=== PATIENT | female | born 1965 | race Caucasian/White ===

== ENCOUNTER 2021-01-01 03:06 | Inpatient (IN) | payer MEDICARE, OTHER ==
[~2021-01-01] VITALS: Ht 175.3 cm; Wt 83.9 kg
[2021-01-01 07:49] VITALS: BP 156/99
[2021-01-01] MEDS ORDERED: CYAN-51 PO (07:49)
[2021-01-01] MEDS ORDERED: GUAN1TAB PO (07:49)
[2021-01-01] MEDS ORDERED: METF-440 PO (07:49)
[2021-01-01] MEDS ORDERED: GABA-532 PO (07:49)
[2021-01-01] MEDS ORDERED: GABA600T12 PO (07:49)
[2021-01-01] MEDS ORDERED: ACETAMINOPHEN 325 MG TABLET PO PRN (08:00)
[2021-01-01] MEDS ORDERED: BLOOD SUGAR DIAGNOSTIC 1 EACH STRIP IN ONE (08:00)
[2021-01-01] MEDS ORDERED: MAGNESIUM HYDROXIDE 30 ML UDC PO PRN (08:00)
[2021-01-01] MEDS ORDERED: MAG HYDROX/AL HYDROX/SIMETH 30 ML UDC PO PRN (08:00)
--- NOTE | 2021-01-01 08:00 | NUR ---
ADMITTED A 55 Y/O FEMALE FROM [facility] , ON 5150 HOLD FOR GD, PER 5150 HOLD, PATIENT IS TANGENTIAL REPORTED HER FATHER PASSING 6 MONTHS AGO BY SUICIDE AND STARTED CRYING ,CLIENT'S BOYFRIEND SHARED THAT CLIENT HASN'T BEEN SLEEPING FOR A COUPLE OF WEEKS AND ALSO NOT EATING ,POOR INSIGHT ,POOR JUDGMENT . PATIENT ADMITTING DX. PSYCHOSIS NOS MEDICAL HX OF ALCOHOLISM ,EATING DISORDER, ASTHMA, GESTATIONAL DM ,HTN MOOD DISORDER ,MOOD DISORDER , PTSD ,ST[place]HOLM SYNDROME. UPON FACE TO FACE EVALUATION, PATIENT APPEARED ALERT AND ORIENTED X 2 ,POOR INSIGHT ,POOR JUDGMENT ,DISORGANIZED THOUGHTS ,FLAT AFFECT ,TEARFUL ,MOOD DEPRESSED , PATIENT STATED "MY FATHER 6 MONTHS A GO AND I MISS HIM". HEAD TO TOE ASSESSMENT DONE NOTED DISCOLORATION ON RIGHT BUTTOCK ,RIGHT LOWER LEG ,LEFT LOWER THIGH AND LEFT BREAST . PATIENT AMBULATORY AND SELF CARE , NO SOB, NO ACUTE DISTRESS, BREATHING EVEN AND UNLABORED, NO S/S OF PAIN AND DISCOMFORT. PATIENT IS UNDER THE CARE OF DR. REED AND SAMANTHA MAGAÑA . BELONGINGS COLLECTED FOR CONTRABAND CHECK. NOTIFIED DR. REED AND SAMANTHA MAGAÑA TO RECONCILE MEDICATION. NOTIFIED RESPONSIBLE CONSTITUTION PARTY OF THE ADMISSION. KEPT CLEAN, DRY AND COMFORTABLE. WILL CONTINUE TO MONITOR Q15 MINUTES FOR SAFETY.
[2021-01-01] MEDS ORDERED: LISI30TA4 PO (10:09)
[2021-01-01] MEDS: LORAZEPAM 0.5 MG TABLET PO PRN (10:26)
--- NOTE | 2021-01-01 10:26 | NUR ---
patient c/o anxiety medicated with Ativan will continue to monitor .
[2021-01-01] MEDS: THIAMINE HCL 100 MG TABLET PO SCH (12:30)
[2021-01-01] MEDS: GABAPENTIN 100 MG CAPSULE PO SCH ×2 (13:37→17:00)
[2021-01-01 16:12] VITALS: BP 122/78
[2021-01-01 20:00] VITALS: BP 153/80
[2021-01-01 20:40] VITALS: BP 153/80
[2021-01-01] MEDS: ZOLPIDEM TARTRATE 5 MG TABLET PO PRN (21:23)
--- NOTE | 2021-01-01 21:23 | NUR ---
GPS-RN NOTE: INSOMNIA PATIENT C/O INABILITY TO SLEEP. PRN AMBIEN 5MG PO GIVEN. WILL CONTINUE TO MONITOR.
--- NOTE | 2021-01-02 01:05 | NUR ---
GPS-RN NOTE: PATIENT C/O LEFT SIDED JAW PAIN. PRN ACETAMINOPHEN 650MG PO GIVEN PER PATIENT'S REQUEST. WILL CONTINUE TO REASSESS.
[2021-01-02 06:39] LABS: BILIRUBIN,TOTAL 0.6 mg/dL (0.2-1.0); CALCIUM, SERUM 8.5 mg/dL (8.5-10.1); CREATININE 0.7 mg/dL (0.6-1.3); TOTAL PROTEIN, SERUM 6.8 g/dL (6.4-8.2)
[2021-01-02 06:51] LABS: CHOLESTEROL 259 mg/dL (<200); HDL CHOLESTEROL 41 mg/dL (40-60); LDL 166 mg/dL (0-99); TRIGLYCERIDES 321 mg/dL (30-150)
[2021-01-02] MEDS: LORAZEPAM 0.5 MG TABLET PO PRN ×2 (06:58→20:33)
--- NOTE | 2021-01-02 06:58 | NUR ---
GPS-RN NOTE: ANXIETY PATIENT C/O FEELING ANXIOUS. PRN ATIVAN 1MG PO GIVEN PER PATIENT'S REQUEST. WILL CONTINUE TO MONITOR.
[2021-01-02 08:00] VITALS: BP 165/100
--- NOTE | 2021-01-02 08:00 | NUR ---
RN NOTE- BP- 165/100. NO ANTIHYPERTENSIVES ORDERED,. POLICY OFFICER LALITO INFORMED. ORDERED LISINOPRIL 30 MG PO QD. COMPLIED / GIVEN
[2021-01-02] MEDS: BLOOD SUGAR DIAGNOSTIC 1 EACH STRIP IN SCH ×4 (08:25→22:03)
[2021-01-02] MEDS: CYANOCOBALAMIN 500 MCG TABLET PO SCH (08:29)
[2021-01-02] MEDS: ARIPIPRAZOLE 5 MG TABLET PO SCH (08:29)
[2021-01-02] MEDS: PAROXETINE HCL 10 MG TABLET PO SCH (08:29)
[2021-01-02] MEDS: MULTIPLE VIT (LYCOPENE/FA/MV,CA,IRON,MIN/LUT)1 TAB PO SCH (08:29)
[2021-01-02] MEDS: THIAMINE HCL 100 MG TABLET PO SCH (08:29)
[2021-01-02] MEDS: METFORMIN 500 MG TABLET PO SCH ×2 (08:29→16:08)
[2021-01-02] MEDS: GABAPENTIN 100 MG CAPSULE PO SCH ×3 (08:29→16:08)
[2021-01-02] MEDS ORDERED: DEXTROSE 50%-WATER 50 ML DISP.SYRIN IV PRN (08:30)
[2021-01-02] MEDS: LISINOPRIL (20MG) 20 MG TABLET PO SCH (08:30)
[2021-01-02] MEDS: INSULIN REGULAR, HUMAN 100 UNIT/ML 3 ML VIAL SQ PRN ×2 (10:04→16:39)
--- NOTE | 2021-01-02 10:41 | NUR ---
RN NOTE- VS RECHECK - BP- 159/104, HR-110. CHEMICAL LABORATORY SCIENTIST LALITO NOTIFIED. WILL ASSESS
--- NOTE | 2021-01-02 11:35 | NUR ---
RN NOTE- INCREASING ANXIETY. ATIVAN 1 MG PRN NOT DUE FOR ANOTHER [address] REED ON UNIT. ORDERED ATIVAN 2 MG PO X ONE DOSE STAT. COMPLIED. GIVEN.
[2021-01-02] MEDS ORDERED: LORAZEPAM 1 MG TABLET PO STA (11:37)
[2021-01-02] MEDS: ASPIRIN 81 MG TAB.CHEW PO SCH (12:12)
[2021-01-02] MEDS: AMLODIPINE BESYLATE 5 MG TABLET PO SCH (12:16)
--- NOTE | 2021-01-02 14:00 | NUR ---
RN NOTE- NAVI STARKEY ASSESSED PT ON UNIT AND ADDED NORVASC TO MEDICATION REGIMEN. REASSESSED PT VS AFTER NORVASC GIVEN EARLIER. CURRENT BP - 147/115, HR- 115. NAVI STARKEY NOTIFIED
[2021-01-02 16:00] VITALS: BP 139/95
--- NOTE | 2021-01-02 16:00 | NUR ---
RN NOTE- BP- 139/95, HR- 100
--- NOTE | 2021-01-02 20:35 | NUR ---
GPS RN NOTES: PATIENT WAS ANXIOUS, RESTLESS, ASKED NURSE FOR ANXIETY MEDICATION. ATIVAN 0.5MG, 4TABS/2MG GIVEN PO PRN ORDERED AT 2032. WILL CONTINUE TO MONITOR.
--- NOTE | 2021-01-02 20:37 | NUR ---
GPS RN NOTES: PATIENT IS ANXIOUS, RESTLESS, REQUESTED ATIVAN. ATIVAN 0.5MG, 4TABS/2MG GIVEN PO PRN ORDERED AT 2032. WILL CONTINUE TO MONITOR.
[2021-01-02] MEDS: ZOLPIDEM TARTRATE 5 MG TABLET PO PRN (21:34)
--- NOTE | 2021-01-02 21:35 | NUR ---
GPS RN NOTES: PATIENT REQUESTED FOR SLEEP MEDICATION. AMBIEN 5MG/1TAB GIVEN PO PRN ORDERED AT 2133. WILL CONTINUE TO MONITOR.
[2021-01-02] MEDS ORDERED: ATORVASTATIN 10 MG TABLET PO SCH (22:00)
[2021-01-03] MEDS: LORAZEPAM 0.5 MG TABLET PO PRN (04:20)
--- NOTE | 2021-01-03 04:20 | NUR ---
GPS RN NOTES: PATIENT WOKE UP AT 0417 AND REPORTED ANXIETY AND RESTLESSNESS, AND REQUESTED FOR ATIVAN. ATIVAN 0.5MG, 4TABS/2MG GIVEN PO PRN ORDERED AT 0420. WILL CONTINUE TO MONITOR.
[2021-01-03 06:29] LABS: BASOPHILS % (AUTO) 0.6 % (0.0-2.0); EOSINOPHILS % (AUTO) 2.9 % (0.0-6.0); HEMATOCRIT 33 % (33-45); LYMPHOCYTES # (AUTO) 1.4 /CMM (0.8-4.8); LYMPHOCYTES % (AUTO) 20.1 % (20.0-44.0); MEAN CORPUSCULAR HGB CONC 34 g/dl (31.0-36.0); MEAN CORPUSCULAR VOLUME 103 fL (82-100); MONOCYTES # (AUTO) 0.8 /CMM (0.1-1.30); NEUTROPHILS # (AUTO) 4.4 /CMM (1.8-8.9); NEUTROPHILS % (AUTO) 64.4 % (43.0-81.0); PLATELET COUNT (AUTO) 220 /CMM (150-450); RED BLOOD CELL COUNT(AUTO) 3.18 MIL/uL (4.0-5.2); WHITE BLOOD COUNT (AUTO) 6.8 K/uL (4.3-11.0)
[2021-01-03 06:45] LABS: CALCIUM, SERUM 8.4 mg/dL (8.5-10.1); CREATININE 0.6 mg/dL (0.6-1.3); MAGNESIUM 1.6 mg/dL (1.8-2.4); PHOSPHORUS 3.7 mg/dL (2.5-4.9); POTASSIUM 3.7 mmol/L (3.5-5.1)
[2021-01-03] MEDS: BLOOD SUGAR DIAGNOSTIC 1 EACH STRIP IN SCH (07:19)
[2021-01-03] MEDS: INSULIN REGULAR, HUMAN 100 UNIT/ML 3 ML VIAL SQ PRN (07:37)
[2021-01-03 08:00] VITALS: BP 150/94
[2021-01-03] MEDS: PAROXETINE HCL 10 MG TABLET PO SCH (08:46)
[2021-01-03] MEDS: THIAMINE HCL 100 MG TABLET PO SCH (08:46)
[2021-01-03] MEDS: ASPIRIN 81 MG TAB.CHEW PO SCH (08:46)
[2021-01-03] MEDS: CYANOCOBALAMIN 500 MCG TABLET PO SCH (08:46)
[2021-01-03] MEDS: GABAPENTIN 100 MG CAPSULE PO SCH (08:46)
[2021-01-03] MEDS: METFORMIN 500 MG TABLET PO SCH (08:46)
[2021-01-03] MEDS: ARIPIPRAZOLE 5 MG TABLET PO SCH (08:46)
[2021-01-03] MEDS: MULTIPLE VIT (LYCOPENE/FA/MV,CA,IRON,MIN/LUT)1 TAB PO SCH (08:46)
[2021-01-03] MEDS: LISINOPRIL (20MG) 20 MG TABLET PO SCH (08:47)
[2021-01-03 08:50] VITALS: BP 150/94
[2021-01-03] MEDS: AMLODIPINE BESYLATE 5 MG TABLET PO SCH (08:50)
--- NOTE | 2021-01-03 09:00 | NUR ---
RN NOTE- PT STATES "IM LEAVING AMA ONCE MD COMES IN" ALERT ORIENTED TO PERSON PLACE TIME PURPOSE DENIES SI HI [facility] CALM
--- NOTE | 2021-01-03 10:20 | NUR ---
Discharge Note: Pt will be discharged against medical advice (AMA) to her own plan of care. Pt refused to state where she was going to go. Upon discharge, pt appears to be alert and oriented x4 (time, place, self and situation). Pt appears to in a dysphoric mood and presents with a distressed affect. Pt appears well groomed and appropriately dressed. Pt denies both suicidal and homicidal ideation as well as auditory and visual hallucinations. Pt will follow up with her outpatient providers. Pt was not provided with any resources as the pt is being discharged AMA.
[2021-01-03] MEDS ORDERED: MAGNESIUM OXIDE 400 MG TABLET PO ONE (10:30)
--- NOTE | 2021-01-03 11:18 | NUR ---
RN NOTE- PT LEFT AMA AT THIS TIME PER ORDERS FROM DR REED. PT ALERT ORIENTED TO PERSON PLACE TIME PURPOSE. PT DENIES SI HI AH VH. VS STABLE. VALUABLES RETURNED TO PT AND SIGNED FOR. ESCORTED OFF UNIT BY THIS RN.
== END 2021-01-03 11:20 | disposition left against medical advice (07) | DRG 885 ==
LOC: GPS 07:20
PROVIDERS: ADMIT Psychiatry & Neurology Psychiatry; ATTEND Nurse Practitioner Acute Care
DX: F31.5 Bipolar disorder, current episode depressed, severe, with psychotic features (principal); E44.0 Moderate protein-calorie malnutrition; E11.9 Type 2 diabetes mellitus without complications; E78.5 Hyperlipidemia, unspecified; I10 Essential (primary) hypertension; J45.909 Unspecified asthma, uncomplicated; F39 Unspecified mood [affective] disorder; F19.10 Other psychoactive substance abuse, uncomplicated; E88.09 Other disorders of plasma-protein metabolism, not elsewhere classified; Z73.6 Limitation of activities due to disability; Y90.9 Presence of alcohol in blood, level not specified; Z79.84 Long term (current) use of oral hypoglycemic drugs; Z68.27 Body mass index [BMI] 27.0-27.9, adult; F10.129 Alcohol abuse with intoxication, unspecified
CPT/HCPCS: 36415; 80048-TC; 80053-TC; 80061-TC; 82962-TC; 83735-TC; 84100-TC; 85025-TC; 87081-TC; J1815